=== PATIENT | male | born 1960 | race Caucasian/White ===

== ENCOUNTER 2016-10-15 11:18 | Emergency (ER) | payer BC ==
[~2016-10-15] VITALS: Ht 182.9 cm; Wt 85.8 kg
[~2016-10-15 11:18] MED LIST: AMOXPOW3 PO; FLUO20CA35 PO; LRTUNK PO; MTRUNK PO
[2016-10-15 11:23] VITALS: TEMP 36.9; Ht 182.9 cm; Wt 85.8 kg
[2016-10-15] MEDS ORDERED: ONDANSETRON INJ 2 MG/ML 2 ML VIAL IV STA (12:06)
[2016-10-15] MEDS ORDERED: SODIUM CHLORIDE 0.9% 1000ML 500 ML IV ONE (12:06)
[2016-10-15] MEDS ORDERED: MoRPHine SULFATE 10 MG/ML CARP/VIAL IV PRN (12:15)
[2016-10-15 12:18] LABS: URINE APPEARANCE CLEAR (CLEAR); URINE BILIRUBIN NEG (NEG); URINE NITRITE NEG (NEG); URINE SPECIFIC GRAVITY 1.016 (1.000-1.030); UROBILINOGEN NEG (NEG); ZZUR CULT IF INDIC CLEAN CATCH NO
[2016-10-15 12:20] LABS: MANUAL MICROSCOPIC REQUIRED? NO; REVIEW REQ? NO; URINE COLOR DK YELLOW
[2016-10-15] MEDS ORDERED: MoRPHine SULFATE 2 MG/ML CARP ONE (12:24)
[2016-10-15 12:31] LABS: HEMATOCRIT 44.1 % (42-52); MEAN CORPUSCULAR HEMOGLOBIN 31.4 pg (25-34); MEAN CORPUSCULAR HGB CONC 34.9 g/dl (32-36); MEAN PLATELET VOLUME 10.6 fL (7.4-10.4); PLATELET COUNT 205 K/uL (130-400); WHITE BLOOD COUNT 9.16 K/uL (4.8-10.8)
[2016-10-15 12:48] LABS: BUN/CREATININE RATIO 14.5 (10-20); CREATININE 0.96 mg/dl (0.60-1.40); POTASSIUM 3.9 mmol/L (3.5-5.1)
[2016-10-15] MEDS ORDERED: SODIUM CHLORIDE 0.9% 1000ML 1,000 ML IV STA (12:51)
[2016-10-15] MEDS ORDERED: LORAZEPAM 2 MG/ML 1 ML VIAL IV STA (12:51)
--- NOTE | 2016-10-15 12:51 | EMERGENCY ROOM VISIT NOTE ---
History Report prepared by Yudith: Natalie Ramos Under the Supervision of: Dr. Darin Coleman M.D. First contact with patient: 12:41 Chief Complaint: BACK PAIN Stated Complaint: BACK,LEG, GROIN PAIN,NAUSEA History of Present Illness The patient is a 56 year old male who presents to the Emergency Room with complaints of persistent back pain for the past 2 weeks. He is accompanied by his . He rates his current pain as a 2/10. He reports 2 nights ago he woke up with generalized abdominal pain and bilateral leg and groin pain. He has also been nauseous and vomiting for the past day. He denies any chest pain or difficulty breathing. He reports he does work in [place], and travels every week for work, which may have exacerbated his back pain. The patient states he underwent an appendectomy 5 years ago but admits his abdominal pain feels similar to when he experienced appendicitis. He denies any history of urinary infections or recent urinary symptoms. 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 A total of 10 systems reviewed and were otherwise negative. Past Medical & Surgical Surgical Problems: (1) History of appendectomy Social History Smoking Status: Never Smoker Smokeless Tobacco Use: No Alcohol Use: occasionally Drug Use: none Marital Status: Housing Status: lives with family Occupation Status: employed Current/Historical Medications Scheduled Fluoxetine (Prozac), 20 MG PO DAILY Ondasetron Odt (Zofran Odt), 4-8 MG SL Q6H Tamsulosin Hcl (Flomax), 1 CAP PO DAILY Scheduled PRN Oxycodone Immediate Rel Tab (Roxicodone Ir), 1-3 TAB PO Q4H PRN for Severe Pain Allergies Coded Allergies: No Known Allergies (Unverified , 12/24/10) Physical Exam Vital Signs Date Time Temp Pulse Resp B/P Pulse Ox O2 Delivery O2 Flow Rate FiO2 10/15/16 15:18 77 16 150/95 97 Room Air 10/15/16 14:29 81 15 144/89 96 Room Air 10/15/16 13:12 74 16 158/92 94 Room Air 10/15/16 12:31 61 16 148/94 97 Room Air 10/15/16 11:23 36.9 81 18 146/94 94 Room Air Physical Exam GENERAL: Patient is anxious and uncomfortable appearing and appears to be in moderate distress. HEENT: No acute trauma, normocephalic atraumatic, mucous membranes moist, no nasal congestion, no scleral icterus. NECK: No stridor, no adenopathy, no meningismus, trachea is midline. LUNGS: No dyspnea. Clear to auscultation and equal bilaterally. No wheeze, no rhonchi. HEART: Regular rate and rhythm. No murmurs, rubs, gallops appreciated. ABDOMEN: Soft, nontender, bowel sounds positive, no masses appreciated, no peritonitis. BACK: No midline tenderness, no CVA tenderness EXTREMITIES: Normal motion all extremities, no cyanosis, no edema. NEUROLOGIC: Alert and oriented, no acute motor or sensory deficits, no focal weakness, cranial nerves grossly intact. SKIN: No rash, no jaundice, no diaphoresis. Medical Decision & Procedures ER Provider Diagnostic Interpretation: This CT scan was reviewed and interpreted by the radiologist and reviewed by myself. ABDOMEN AND PELVIS CT WITH IV CONTRAST IMPRESSION: 1. Mild right hydronephrosis secondary to an obstructing 2 mm stone within the distal right ureter as it crosses the iliac vessels. 2. There is also patchy area of decreased enhancement within the right kidney consistent with pyelonephritis. 3. Additional findings as described above. Electronically signed by: Mp Oropeza M.D. 10/15/2016 2:04 PM Laboratory Results 10/15/16 12:20 10/15/16 12:20 Test 10/15/16 12:00 10/15/16 12:20 Urine Color DK YELLOW Urine Appearance CLEAR (CLEAR) Urine pH 7.0 (4.5-7.5) Urine Specific [place] 1.016 (1.000-1.030) Urine Protein NEG (NEG) Urine Glucose (UA) NEG (NEG) Urine Ketones NEG (NEG) Urine Occult Blood 3+ (NEG) Urine Nitrite NEG (NEG) Urine Bilirubin NEG (NEG) Urine Urobilinogen NEG (NEG) Urine Leukocyte Esterase NEG (NEG) Urine WBC (Auto) 1-5 /hpf (0-5) Urine RBC (Auto) >30 /hpf (0-4) Urine Hyaline Casts (Auto) 1-5 /lpf (0-5) Urine Epithelial Cells (Auto) 10-20 /lpf (0-5) Urine Bacteria (Auto) NEG (NEG) Red Blood Count 4.90 M/uL (4.7-6.1) Mean Corpuscular Volume 90.0 fL (80-100) Mean Corpuscular Hemoglobin 31.4 pg (25-34) Mean Corpuscular Hemoglobin Concent 34.9 g/dl (32-36) RDW Standard Deviation 42.2 fL (36.4-46.3) RDW Coefficient of Variation 12.8 % (11.5-14.5) Mean Platelet Volume 10.6 fL (7.4-10.4) Anion Gap 6.0 mmol/L (3-11) Est Creatinine Clear Calc Drug Dose 92.1 ml/min Estimated GFR () 100.6 Estimated GFR (Non- 86.8 BUN/Creatinine Ratio 14.5 (10-20) Calcium Level 9.0 mg/dl (8.5-10.1) Laboratory results as reviewed by me. Medications Administered Medications (Trade) Dose Ordered Sig/Delicia Route Start Time Stop Time Status Last Admin Dose Admin Sodium Chloride (Nss 1000ml) 500 ml @ 999 mls/hr Q31M ONCE IV 10/15/16 12:06 10/15/16 12:36 DC 10/15/16 12:35 999 MLS/HR Ondansetron HCl (Zofran Inj) 4 mg NOW STAT IV 10/15/16 12:06 10/15/16 12:08 DC 10/15/16 12:36 4 MG Morphine Sulfate (MoRPHine SULFATE INJ) 2 mg STK-MED ONCE .ROUTE 10/15/16 12:24 10/15/16 12:26 DC 10/15/16 12:38 2 MG Lorazepam 1 mg 1 mg NOW STAT IV 10/15/16 12:51 10/15/16 12:52 DC 10/15/16 13:09 1 MG Sodium Chloride (Nss 1000ml) 1,000 ml @ 999 mls/hr Q1H1M STAT IV 10/15/16 12:51 10/15/16 13:51 DC 10/15/16 13:12 999 MLS/HR Ketorolac Tromethamine (Toradol Inj) 30 mg NOW STAT IV 10/15/16 14:56 10/15/16 14:58 DC 10/15/16 15:16 30 MG Tamsulosin HCl (Flomax Cap) 0.4 mg NOW ONCE PO 10/15/16 15:00 10/15/16 15:01 DC 10/15/16 15:14 0.4 MG Oxycodone HCl (Roxicodone Immediate Rel 5MG Home Pack) 1 homepack UD ONCE PO 10/15/16 16:15 10/15/16 16:16 DC 10/15/16 16:15 1 HOMEPACK Ondansetron HCl (ZOFRAN ODT 4MG Home Pack) 1 homepack UD ONCE PO 10/15/16 16:15 10/15/16 16:16 DC 10/15/16 16:15 1 HOMEPACK ED Course 1206: Zofran 4 mg IV, NSS 500 ml @ 999 mls/hr IV. 1224: Morphine Sulfate 2 mg IV. 1244: The patient was evaluated in room A9. A complete history and physical exam was performed. 1251: NSS 1000 ml @ 999 mls/hr IV, Lorazepam 1 mg IV. 1456: I discussed the patients case with Dr. Garcia, [facility]. He recommends outpatient follow up. 1456: Toradol 30 mg IV. 1500: Flomax 0.4 mg PO. 1515: I reevaluated the patient. He is feeling well and states he feels comfortable going home. I discussed his results and discharge instructions and he verbalized complete understanding and agreement. Medical Decision Differential: Renal Colic, Pyelonephritis, Hydronephrosis, Appendicitis, Diverticulitis, Retroperitoneal Bleed/Infection, Aortic Pathology, MSK, Neurologic Pathology, amongst other pathologies entertained. 56 yr old male with right flank pain associated with periodic severe pain. UA with blood though no history of stones thus seems reasonable getting CT to rule out other issue. CT with right 2mm ureteral stone. No fevers, normal wbc, no bacteria nor even many wbc in urine thus I do not feel this is infectious. No right cva ttp. Discussed with Uro who agree with trying outpatient treatment. No indication for abx and advised patient of symptoms requiring return. Pain meds, Flomax, zofran and lots of fluids. Restrictions of pain meds reviewed with patient. Stable and in no distress at time of discharge. Given single dose Toradol with instructions avoid Ibuprofen over next few days in case of need for uro procedure. Consults Time Called: 1450 Consulting Physician: [facility] Returned Call: [phone] I discussed the patients case with [facility]. He recommends outpatient follow up. Impression Primary Impression: Right ureteral calculus Scribe Attestation The scribe's documentation has been prepared under my direction and personally reviewed by me in its entirety. I confirm that the note above accurately reflects all work, treatment, procedures, and medical decision making performed by me. Departure Information Dispostion Home / Self-Care Prescriptions Tamsulosin Hcl (FLOMAX) 0.4 Mg Cap 1 CAP PO DAILY, #5 CAP Prov: Darin Coleman M.D. 10/15/16 Ondasetron Odt (ZOFRAN ODT) 4 Mg Tab 4-8 MG SL Q6H for Nausea, #15 TAB Prov: Darin Coleman M.D. 10/15/16 Oxycodone Immediate Rel Tab (ROXICODONE IR) 5 Mg Tab 1-3 TAB PO Q4H Y for Severe Pain, #20 TAB Prov: Darin Coleman M.D. 10/15/16 Referrals Stefanie Ortiz, (PCP) Juan Garcia M.D. Patient Instructions Kidney Stones - [facility], My [facility] Additional Instructions You have received a narcotic pain medication prescription. These medications may cause drowsiness and should not be used with other sedative medications. Do not drive, drink alcohol, perform dangerous activities, nor make important decisions after taking these medications. snf use or inappropriate use may lead to addiction. Return immediately if severe pain, passing out, vomiting, fevers, or other concerns. If no improvement follow up with Urologist.
[2016-10-15] MEDS ORDERED: OPTIRAY 320 IV PRN (13:00)
--- NOTE | 2016-10-15 14:06 | DIAGNOSTIC IMAGING REPORT ---
ABDOMEN AND PELVIS CT WITH IV CONTRAST CT DOSE: 610.27 mGy.cm HISTORY: Right flank pain, blood in urine TECHNIQUE: Multiaxial CT images of the abdomen and pelvis were performed following the use of intravenous contrast. COMPARISON STUDY: Abdomen and pelvis CT 12/24/2010. FINDINGS: The lung bases are clear. 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 The bladder is unremarkable. Left peripelvic cysts are again noted. Increase in size in the 2.2 cm cyst within the lower pole the left kidney. A 1.3 cm cyst within the lower pole the right kidney has also increased in size. There is a patchy area of decreased enhancement within the posterior interpolar region of the right kidney. There is minimal perinephric fat stranding. These findings are consistent with pyelonephritis. There is also mild right hydronephrosis. There is a punctate calcification which appears to be located within the distal right ureter as it crosses the iliac vessels on image 364. This measures 2 mm. Hepatic steatosis. The gallbladder, pancreas, spleen, and adrenal glands are unremarkable. No retroperitoneal lymphadenopathy. Colonic diverticulosis. No bowel wall thickening or obstruction. The appendix appears surgically absent. IMPRESSION: 1. Mild right hydronephrosis secondary to an obstructing 2 mm stone within the distal right ureter as it crosses the iliac vessels. 2. There is also patchy area of decreased enhancement within the right kidney consistent with pyelonephritis. 3. Additional findings as described above. Electronically signed by: Mp Oropeza M.D. 10/15/2016 2:04 PM Dictated Date/Time: 10/15/2016 1:56 PM
[2016-10-15] MEDS ORDERED: KETOROLAC TROMETHAMINE 30 MG/ML VIAL IV STA (14:56)
[2016-10-15] MEDS ORDERED: TAMSULOSIN HCL 0.4 MG CAP PO ONE (15:00)
[2016-10-15 15:18] VITALS: BP 150/95; PULSE 77; O2SAT 97
[2016-10-15] MEDS ORDERED: ONDA4TAB10 SL (15:31)
[2016-10-15] MEDS ORDERED: OXYC1TAB3 PO (15:31)
[2016-10-15] MEDS ORDERED: TAMS0.4C38 PO (15:31)
[2016-10-15] MEDS ORDERED: OXYCODONE IR HOME PACK PO ONE (16:15)
[2016-10-15] MEDS ORDERED: ONDANSETRON HOME PACK 4MG OD TAB PO ONE (16:15)
[2016-10-30] MEDS ORDERED: TAMS0.4C38 PO (16:17)
[2016-11-03] MEDS ORDERED: HYDR-5688 PO (08:03)
[2016-11-03] MEDS ORDERED: PHEN-876 PO (08:03)
[2016-11-03] MEDS ORDERED: CIPR-255 PO (08:03)
== END 2016-10-15 15:46 | disposition home or self-care (01) ==
LOC: C.EDB 11:21 → C.EDA 15:46
DX: N20.1 Calculus of ureter (principal)

== ENCOUNTER 2016-10-24 10:42 | Emergency (ER) | payer BC ==
[~2016-10-24] VITALS: Ht 180.3 cm; Wt 86.0 kg
[~2016-10-24 10:42] MED LIST changes: -AMOXPOW3 PO; -LRTUNK PO; -MTRUNK PO; +ONDA4TAB10 SL; +OXYC1TAB3 PO; +TAMS0.4C38 PO
[2016-10-24 10:47] VITALS: TEMP 36.7
[2016-10-24] MEDS ORDERED: SODIUM CHLORIDE 0.9% 1000ML 1,000 ML IV STA ×2 (10:58)
[2016-10-24] MEDS ORDERED: KETOROLAC TROMETHAMINE 30 MG/ML VIAL IV STA (10:58)
[2016-10-24] MEDS ORDERED: ONDANSETRON INJ 2 MG/ML 2 ML VIAL IV STA (10:58)
[2016-10-24] MEDS ORDERED: MoRPHine SULFATE 4 MG/ML 1 ML CARP\\VIAL IV PRN (11:00)
--- NOTE | 2016-10-24 11:20 | EMERGENCY ROOM VISIT NOTE ---
History Report prepared by Yudith: Ele Santamaria Under the Supervision of: Dr. Abhishek Carbajal M.D. First contact with patient: 10:54 Chief Complaint: KIDNEY STONE Stated Complaint: KIDNEY STONES History of Present Illness The patient is a 56 year old male who presents to the Emergency Room with complaints of a persistent kidney stone that was found 11 days ago. He currently rates his discomfort as a 6.5-7/10 in severity, but states that this morning he was in more pain. Per records, the patient had a 2 mm stone in the right distal ureter on the 15 of October. The patient states that he was prescribed oxycodone for his pain, Zofran for his nausea, and Tamsulosin. He states that he has only been taking the Tamsulosin daily. The patient states that he has become constipated due to the Oxycodone stating that he took Doctylax around 1600 yesterday which alleviated his constipation. He describes his discomfort as an achy pain and notes it into his groin and testicles. The patient states that this is his first kidney stone and states that he had an appointment with urology today. He states that he was told that his kidney stone should pass within two days, but denies seeing the stone pass yet. The patient states that his pain worsened. The patient states that he has been sleeping okay, noting that he is getting up often in the middle of the night due to increased urination. He denies any current fever, nausea, or vomiting. Source of History: patient Onset: 11 days ago Position: other (kidney stone) Symptom Intensity: 6.5-7/10 Quality: ache Timing: other (persistent) Associated Symptoms: No fevers, No nausea, No vomiting Review of Systems See HPI for pertinent positives & negatives. A total of 10 systems reviewed and were otherwise negative. Past Medical & Surgical Surgical Problems: (1) History of appendectomy Family History Cancer FH: heart disease Social History Smoking Status: Never Smoker Alcohol Use: occasionally Drug Use: none Marital Status: Housing Status: lives with family Occupation Status: employed Current/Historical Medications Scheduled Fluoxetine (Prozac), 20 MG PO DAILY Ondasetron Odt (Zofran Odt), 4-8 MG SL Q6H Tamsulosin Hcl (Flomax), 1 CAP PO DAILY Scheduled PRN Oxycodone Immediate Rel Tab (Roxicodone Ir), 1-3 TAB PO Q4H PRN for Severe Pain Allergies Coded Allergies: No Known Allergies (Unverified , 12/24/10) Physical Exam Vital Signs Date Time Temp Pulse Resp B/P Pulse Ox O2 Delivery O2 Flow Rate FiO2 10/24/16 14:43 60 16 141/87 97 Room Air 10/24/16 14:04 96 Room Air 10/24/16 12:41 63 18 143/87 96 Room Air 10/24/16 10:47 36.7 68 18 156/96 98 Physical Exam GENERAL: Patient is in moderate distress, having a difficult time sitting still. HEENT: No acute trauma, normocephalic atraumatic, mucous membranes moist, no nasal congestion, no scleral icterus. NECK: No stridor, no adenopathy, no meningismus, trachea is midline. LUNGS: Clear to auscultation bilaterally, no wheeze, no rhonchi, breath sounds equal. HEART: Without murmurs gallops or rubs, regular rate and rhythm. ABDOMEN: Soft, nontender, bowel sounds positive, no hernias, no peritonitis. BACK: No flank discomfort with percussion. EXTREMITIES: No cyanosis or edema, full range of motion of all the joints without pain or difficulty, no signs for acute trauma. NEUROLOGIC: Oriented x 3, no acute motor or sensory deficits, no focal weakness. SKIN: No rash, no jaundice, no diaphoresis. Medical Decision & Procedures ER Provider Diagnostic Interpretation: X-ray results as stated below per interpretation by me and the radiologist: KUB CLINICAL HISTORY: Right flank pain. FINDINGS: 2 AP supine abdominal radiographs are correlated with abdominal CT dated 10/15/16. There is a nonobstructed abdominal bowel gas pattern. No evidence of intraperitoneal free air is seen on these supine views. There are no abnormal abdominal calcifications. Right-sided pelvic phleboliths are unchanged. The bony structures appear intact. IMPRESSION: 1. There is no radiographic evidence of nephrolithiasis. 2. No bowel obstruction is seen. Electronically signed by: Abhishek Arora M.D. 10/24/2016 11:33 AM Dictated Date/Time: 10/24/2016 11:31 AM The status of this report is Signed. Draft = Not yet reviewed or approved by Radiologist. Signed = Reviewed and approved by Radiologist. Laboratory Results 10/24/16 11:05 Red Blood Count 4.68, Mean Corpuscular Volume 91.9, Mean Corpuscular Hemoglobin 32.3, Mean Corpuscular Hemoglobin Concent 35.1, Mean Platelet Volume 10.8, Neutrophils (%) (Auto) 73.0, Lymphocytes (%) (Auto) 17.4, Monocytes (%) (Auto) 9.1, Eosinophils (%) (Auto) 0.2, Basophils (%) (Auto) 0.2, Neutrophils # (Auto) 5.85, Lymphocytes # (Auto) 1.40, Monocytes # (Auto) 0.73, Eosinophils # (Auto) 0.02, Basophils # (Auto) 0.02 10/24/16 11:05 Test 10/24/16 11:05 10/24/16 11:09 White Blood Count 8.03 K/uL (4.8-10.8) Red Blood Count 4.68 M/uL (4.7-6.1) Hemoglobin 15.1 g/dL (14.0-18.0) Hematocrit 43.0 % (42-52) Mean Corpuscular Volume 91.9 fL (80-100) Mean Corpuscular Hemoglobin 32.3 pg (25-34) Mean Corpuscular Hemoglobin Concent 35.1 g/dl (32-36) Platelet Count 213 K/uL (130-400) Mean Platelet Volume 10.8 fL (7.4-10.4) Neutrophils (%) (Auto) 73.0 % Lymphocytes (%) (Auto) 17.4 % Monocytes (%) (Auto) 9.1 % Eosinophils (%) (Auto) 0.2 % Basophils (%) (Auto) 0.2 % Neutrophils # (Auto) 5.85 K/uL (1.4-6.5) Lymphocytes # (Auto) 1.40 K/uL (1.2-3.4) Monocytes # (Auto) 0.73 K/uL (0.11-0.59) Eosinophils # (Auto) 0.02 K/uL (0-0.5) Basophils # (Auto) 0.02 K/uL (0-0.2) RDW Standard Deviation 43.0 fL (36.4-46.3) RDW Coefficient of Variation 12.8 % (11.5-14.5) Immature Granulocyte % (Auto) 0.1 % Immature Granulocyte # (Auto) 0.01 K/uL (0.00-0.02) Anion Gap 11.0 mmol/L (3-11) Est Creatinine Clear Calc Drug Dose 85.7 ml/min Estimated GFR () 95.7 Estimated GFR (Non- 82.6 BUN/Creatinine Ratio 11.1 (10-20) Calcium Level 9.2 mg/dl (8.5-10.1) Urine Color YELLOW Urine Appearance CLEAR (CLEAR) Urine pH 6.5 (4.5-7.5) Urine Specific [place] 1.000 (1.000-1.030) Urine Protein NEG (NEG) Urine Glucose (UA) NEG (NEG) Urine Ketones NEG (NEG) Urine Occult Blood 3+ (NEG) Urine Nitrite NEG (NEG) Urine Bilirubin NEG (NEG) Urine Urobilinogen NEG (NEG) Urine Leukocyte Esterase NEG (NEG) Urine WBC (Auto) 0 /hpf (0-5) Urine RBC (Auto) 0-4 /hpf (0-4) Urine Hyaline Casts (Auto) 0 /lpf (0-5) Urine Epithelial Cells (Auto) 0-5 /lpf (0-5) Urine Bacteria (Auto) NEG (NEG) Laboratory results reviewed by me. Medications Administered Medications (Trade) Dose Ordered Sig/Delicia Route Start Time Stop Time Status Last Admin Dose Admin Ondansetron HCl 4 mg 4 mg NOW STAT IV 10/24/16 10:58 10/24/16 11:01 DC 10/24/16 11:11 4 MG Sodium Chloride 1,000 ml @ 999 mls/hr Q1H1M STAT IV 10/24/16 10:58 10/24/16 11:58 DC 10/24/16 11:10 999 MLS/HR Sodium Chloride (Nss 1000ml) 1,000 ml @ 200 mls/hr Q5H STAT IV 10/24/16 10:58 10/24/16 15:57 10/24/16 12:40 200 MLS/HR Morphine Sulfate (MoRPHine SULFATE INJ) 4 mg Q15M PRN IV 10/24/16 11:00 11/07/16 10:59 10/24/16 11:11 4 MG Ketorolac Tromethamine (Toradol Inj) 30 mg NOW STAT IV 10/24/16 10:58 10/24/16 11:02 DC 10/24/16 11:11 30 MG ED Course 1057: The patient was evaluated in room C6. A complete history and physical exam was performed. 1058: Ordered Toradol Inj 30 mg IV, Sodium Chloride 1000 ml @ 200 mls/hr IV, Sodium Chloride 1000 ml @ 999 mls/hr IV, Zofran Inj 4 mg iV. 1100: Ordered Morphine Sulfate 4 mg IV. 1217: I reevaluated the patient and he is about the same. I discussed all the exam findings with him and I discussed the treatment plan. He verbalized complete understanding and agreement. He will be evaluated for further treatment. 1253: I discussed the patient's case with MAURA Ricks. He is going to evaluate the patient for further treatment. Medical Decision The patient is a 56 year old male who presents to the ED with complaints of a kidney stone. Differential diagnoses considered include failed outpatient treatment, renal colic, renal failure, electrolyte imbalance, UTI. There is no leukocytosis or concerning anemia. No significant electrolyte abnormality, kidney failure. Urinalysis does not show evidence for infection. Urine did demonstrate some hematuria. KUB shows no obvious ureteral stone. The patient received IV saline, IV Toradol, IV morphine and IV Zofran, he is more comfortable. The patient has been unable to pass the ureteral stone since he has been home. He has been dealing with this issue now for 10 days, he is failing outpatient management. He does not think he can be discharged home in this condition. I did speak with case management and the on-call hospitalist. Consults Time Called: 1220 Consulting Physician: MAURA Ricks Returned Call: [phone] I discussed the patient's case with MAURA Ricks. He is going to evaluate the patient for further treatment. Impression Primary Impression: Renal colic Additional Impression: Failure of outpatient treatment Scribe Attestation The scribe's documentation has been prepared under my direction and personally reviewed by me in its entirety. I confirm that the note above accurately reflects all work, treatment, procedures, and medical decision making performed by me. Departure Information Dispostion Being Evaluated By Hospitalist Referrals Stefanie Ortiz DO (PCP) Problem Qualifiers
[2016-10-24 11:26] LABS: BASO % 0.2 %; BASO ABS # 0.02 K/uL (0-0.2); COMPLETE YES; EOS % 0.2 %; IG% 0.1 %; LYMPH % 17.4 %; MEAN CELL VOLUME 91.9 fL (80-100); MEAN CORPUSCULAR HEMOGLOBIN 32.3 pg (25-34); MEAN CORPUSCULAR HGB CONC 35.1 g/dl (32-36); MEAN PLATELET VOLUME 10.8 fL (7.4-10.4); MONO % 9.1 %; PLATELET COUNT 213 K/uL (130-400); RED BLOOD COUNT 4.68 M/uL (4.7-6.1); WHITE BLOOD COUNT 8.03 K/uL (4.8-10.8)
[2016-10-24 11:28] LABS: URINE APPEARANCE CLEAR (CLEAR); URINE BILIRUBIN NEG (NEG); URINE COLOR YELLOW; URINE EPITHELIAL CELL AUTO 0-5 /lpf (0-5); URINE NITRITE NEG (NEG); URINE PH 6.5 (4.5-7.5); UROBILINOGEN NEG (NEG); ZZUR CULT IF INDIC CLEAN CATCH NO
--- NOTE | 2016-10-24 11:34 | DIAGNOSTIC IMAGING REPORT ---
KUB CLINICAL HISTORY: Right flank pain. FINDINGS: 2 AP supine abdominal radiographs are correlated with abdominal CT dated 10/15/16. There is a nonobstructed abdominal bowel gas pattern. No evidence of intraperitoneal free air is seen on these supine views. There are no abnormal abdominal calcifications. Right-sided pelvic phleboliths are unchanged. The bony structures appear intact. IMPRESSION: 1. There is no radiographic evidence of nephrolithiasis. 2. No bowel obstruction is seen. Electronically signed by: Abhishek Arora M.D. 10/24/2016 11:33 AM Dictated Date/Time: 10/24/2016 11:31 AM
[2016-10-24 11:36] LABS: MANUAL MICROSCOPIC REQUIRED? NO; REVIEW REQ? NO
[2016-10-24] MEDS ORDERED: NURSING VERBAL MED ORDER ONE (11:45)
[2016-10-24 11:52] LABS: BUN/CREATININE RATIO 11.1 (10-20); CALCIUM 9.2 mg/dl (8.5-10.1); POTASSIUM 3.4 mmol/L (3.5-5.1)
--- NOTE | 2016-10-24 13:59 | History and Physical ---
History & Physical Date & Time of Service: Oct 24, 2016 at 13:48 Chief Complaint: Kidney Stones Primary Care Physician: Stefanie Ortiz DO History of Present Illness Source: patient 56 y/o M who denies a significant medical history presented 10/15 with R flank pain and was diagnosed with a 2mm obstructing distal ureteral stone and associated hydronephrosis. The pt was D/Cd home as the stone was likely going to pass spontaneously. He has had progressive pain however which he states has not improved. He denies fevers or significant dysuria. He describes difficulty sleeping and pacing continuously while awake due to the severity of the pain. On repeat CT it does appear that the stone has migrated to the ureterovesical junction. Past Medical/Surgical History Renal calculus 10/15 Family History Cancer FH: heart disease Social History Pt works in [facility] in the [employer] industry - He travels to [place] frequently - he does not smoke and drinks in moderation Smoking Status: Never Smoker Drug Use: none Marital Status: Occupational Status: employed Immunizations History of Influenza Vaccine: No History of Tetanus Vaccine?: No History of Pneumococcal: No History of Hepatitis B Vaccine: Yes Multi-Drug Resistant Organisms History of MDRO: No Allergies Coded Allergies: No Known Allergies (Unverified , 12/24/10) Home Medications Scheduled Fluoxetine (Prozac), 20 MG PO DAILY Ondasetron Odt (Zofran Odt), 4-8 MG SL Q6H Tamsulosin Hcl (Flomax), 1 CAP PO DAILY Scheduled PRN Ketorolac Tromethamine (Toradol), 10 MG PO Q6 PRN for Pain Oxycodone Immediate Rel Tab (Roxicodone Ir), 1-3 TAB PO Q4H PRN for Severe Pain Review of Systems Constitutional: No chills, No fever, No sweats Eyes: No worsening of vision ENT: No hearing loss, No nasal symptoms, No unusual epistaxis Respiratory: No cough, No sputum, No wheezing Cardiovascular: No PND, No chest pain, No orthopnea Abdomen: + pain (R flank - RLQ) Musculoskeletal: No joint pain, No muscle pain Genitourinary - Male: + hematuria (No gross heamturia described), + problem reported (R flank pain - severe), No dysuria Neurologic: No memory loss, No paralysis, No weakness Psychiatric: No anhedonism, No depression symptoms Endocrine: No fatigue Hematologic / Lymphatic: No abnormal bleeding/bruising Integumentary: No rash Allergic / Immunologic: No environmental allergies Physical Exam Vital Signs Date Time Temp Pulse Resp B/P Pulse Ox O2 Delivery O2 Flow Rate FiO2 10/24/16 12:41 63 18 143/87 96 Room Air 10/24/16 10:47 36.7 68 18 156/96 98 General Appearance: WD/WN, no apparent distress Head: normocephalic, atraumatic Eyes: normal inspection, PERRL, EOMI ENT: normal ENT inspection, hearing grossly normal, TMs normal, pharynx normal Neck: supple, no adenopathy, thyroid normal, no JVD Respiratory/Chest: chest non-tender, lungs clear, normal breath sounds, no respiratory distress, no accessory muscle use Cardiovascular: regular rate, rhythm, no edema, no gallop, no JVD, no murmur, normal peripheral pulses Abdomen/GI: normal bowel sounds, non tender, soft Genitourinary - Male: + pertinent finding (R flank pain to palpation) Back: normal inspection, no CVA tenderness, no muscle spasm, normal range of motion Extremities/Musculoskelatal: normal inspection, no calf tenderness, normal capillary refill, no pedal edema, normal range of motion 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, no motor/sensory deficits, alert, normal mood/affect, normal reflexes, oriented x 3 Skin: normal color, warm/dry, no rash Diagnostics Laboratory Results Results Past 24 Hours Test 10/24/16 11:05 10/24/16 11:09 Range/Units White Blood Count 8.03 4.8-10.8 K/uL Red Blood Count 4.68 4.7-6.1 M/uL Hemoglobin 15.1 14.0-18.0 g/dL Hematocrit 43.0 42-52 % Mean Corpuscular Volume 91.9 80-100 fL Mean Corpuscular Hemoglobin 32.3 25-34 pg Mean Corpuscular Hemoglobin Concent 35.1 32-36 g/dl Platelet Count 213 130-400 K/uL Mean Platelet Volume 10.8 7.4-10.4 fL Neutrophils (%) (Auto) 73.0 % Lymphocytes (%) (Auto) 17.4 % Monocytes (%) (Auto) 9.1 % Eosinophils (%) (Auto) 0.2 % Basophils (%) (Auto) 0.2 % Neutrophils # (Auto) 5.85 1.4-6.5 K/uL Lymphocytes # (Auto) 1.40 1.2-3.4 K/uL Monocytes # (Auto) 0.73 0.11-0.59 K/uL Eosinophils # (Auto) 0.02 0-0.5 K/uL Basophils # (Auto) 0.02 0-0.2 K/uL RDW Standard Deviation 43.0 36.4-46.3 fL RDW Coefficient of Variation 12.8 11.5-14.5 % Immature Granulocyte % (Auto) 0.1 % Immature Granulocyte # (Auto) 0.01 0.00-0.02 K/uL Sodium Level 136 136-145 mmol/L Potassium Level 3.4 3.5-5.1 mmol/L Chloride Level 99 98-107 mmol/L Carbon Dioxide Level 26 21-32 mmol/L Anion Gap 11.0 3-11 mmol/L Blood Urea Nitrogen 11 7-18 mg/dl Creatinine 1.00 0.60-1.40 mg/dl Est Creatinine Clear Calc Drug Dose 85.7 ml/min Estimated GFR () 95.7 Estimated GFR (Non- 82.6 BUN/Creatinine Ratio 11.1 10-20 Random Glucose 94 70-99 mg/dl Calcium Level 9.2 8.5-10.1 mg/dl Urine Color YELLOW Urine Appearance CLEAR CLEAR Urine pH 6.5 4.5-7.5 Urine Specific [place] 1.000 1.000-1.030 Urine Protein NEG NEG Urine Glucose (UA) NEG NEG Urine Ketones NEG NEG Urine Occult Blood 3+ NEG Urine Nitrite NEG NEG Urine Bilirubin NEG NEG Urine Urobilinogen NEG NEG Urine Leukocyte Esterase NEG NEG Urine WBC (Auto) 0 0-5 /hpf Urine RBC (Auto) 0-4 0-4 /hpf Urine Hyaline Casts (Auto) 0 0-5 /lpf Urine Epithelial Cells (Auto) 0-5 0-5 /lpf Urine Bacteria (Auto) NEG NEG Diagnostic Radiology KUB 1. There is no radiographic evidence of nephrolithiasis. 2. No bowel obstruction is seen. CT: Distal migration of the previously described 2 mm right ureteral calculus, which is now positioned within the intravesical portion of the right ureterovesical junction. Impression Assessment and Plan 56 y/o M who denies a significant medical history presented 10/15 with R flank pain and was diagnosed with a 2mm obstructing distal ureteral stone and associated hydronephrosis. The pt was D/Cd home as the stone was likely going to pass spontaneously. He has had progressive pain however which he states has not improved. He denies fevers or significant dysuria. He describes difficulty sleeping and pacing continuously while awake due to the severity of the pain. I had an extensive discussion with the pt, his and the ER attending and also spoke to the Urologist manager talent acquisition. Considering that the stone has migrated and is likely to pass spontaneously, the pt will be D/Cd with appropriate analgesics. We have made an appt for him with the urologist for the following day. He is instructed to return to the hospital if he develops a fever for nausea and vomiting which would preclude him form taking his medications. Total time for this admit including review of labs, meds, records, imaging - discussion with ER attending and pt/ - 38 min Please consider the above a consult Resuscitation Status FULL RESUSCITATION
[2016-10-24 14:04] VITALS: O2SAT 96; Ht 180.3 cm; Wt 86.0 kg
--- NOTE | 2016-10-24 14:52 | DIAGNOSTIC IMAGING REPORT ---
CT SCAN OF THE ABDOMEN AND PELVIS WITHOUT CONTRAST CLINICAL HISTORY: Right flank pain COMPARISON STUDY: 10/15/2016 TECHNIQUE: CT scan of the abdomen and pelvis was performed from the lung bases to the proximal femurs. Images are reviewed in the axial, sagittal, and coronal planes. IV contrast was not administered for this examination. CT DOSE: 923.33 mGy.cm FINDINGS: Lower chest: The heart is normal in size and configuration, without pericardial effusion. The lung bases and pleural spaces are clear. Liver: There is suspected hepatic steatosis. Gallbladder: Unremarkable. Spleen: Normal in size and attenuation. Pancreas: Unremarkable. Adrenal glands: Unremarkable. Kidneys: No renal calculi are visualized. There is a 22 mm lower pole left renal cyst. There is a 12 mm lower pole right renal cyst. There is been distal migration of the previous described 2 mm right ureteral calculus to the level of the right ureterovesical junction. No left ureteral calculi are visualized. Bowel: There are no transition zones indicate bowel obstruction. There is no acute diverticulitis. The appendix is surgically absent. Peritoneum: There is no intraperitoneal free air or abdominal ascites. Vasculature: The abdominal aorta is normal in course and caliber. Adenopathy: None. Pelvic viscera: The prostate is mildly enlarged with calcifications. The prostate measures 5.5 cm Skeletal structures: There is right-sided L5 spondylolysis. IMPRESSION: Distal migration of the previously described 2 mm right ureteral calculus, which is now positioned within the intravesical portion of the right ureterovesical junction. Electronically signed by: Navarro Ayala M.D. 10/24/2016 2:51 PM Dictated Date/Time: 10/24/2016 2:45 PM
[2016-10-24] MEDS ORDERED: KETO10TA PO (15:32)
--- NOTE | 2016-10-24 15:43 | EMERGENCY ROOM VISIT NOTE ---
ED Visit Note First contact with patient: 10:54 The patient was seen by the on-call hospitalist. Urology was consulted. The patient has decided to be discharged home, he has an appointment tomorrow with urology. He will be on Toradol orally as this has helped him with pain control. The patient will continue the Uroxatral as prescribed. He can use Zofran for nausea. If he is worsening, if his pain is not controlled, he will report back to the ER.
[2016-10-24 16:08] VITALS: BP 140/84; PULSE 60; O2SAT 99
[2016-10-30] MEDS ORDERED: TAMS0.4C38 PO (16:17)
[2016-11-03] MEDS ORDERED: CIPR-255 PO (08:03)
[2016-11-03] MEDS ORDERED: HYDR-5688 PO (08:03)
[2016-11-03] MEDS ORDERED: PHEN-876 PO (08:03)
== END 2016-10-24 16:10 | disposition home or self-care (01) ==
LOC: C.EDB 10:44 → C.EDC 16:10
DX: N23 Unspecified renal colic (principal); Z91.19 Patient's noncompliance with other medical treatment and regimen

== ENCOUNTER → 2016-10-30 | Outpatient (CLI) | payer BC ==
[~2016-10-30] MED LIST changes: +CIPR-255 PO; +HYDR-5688 PO; +KETO10TA PO; +PHEN-876 PO
--- NOTE | 2016-10-30 15:19 | DIAGNOSTIC IMAGING REPORT ---
CHEST 2 VIEWS ROUTINE CLINICAL HISTORY: N20.0 Kidney [id number] pain. Dyspnea. COMPARISON STUDY: No previous studies for comparison. FINDINGS: The bones soft tissues and hemidiaphragms are normal. The cardiomediastinal silhouette is normal. The lungs are clear. The pulmonary vasculature is normal. IMPRESSION: Negative chest. Electronically signed by: Jun Cuadra M.D. 10/30/2016 3:17 PM Dictated Date/Time: 10/30/2016 3:13 PM
== END | disposition home or self-care (01) ==
LOC: C.CPL 14:44
PROVIDERS: ATTEND Urology
DX: N20.0 Calculus of kidney (principal); R00.1 Bradycardia, unspecified

== ENCOUNTER → 2016-11-03 | Day surgery (SDC) | payer BC ==
[2016-10-30 16:17] VITALS: BMI 26.0
[~2016-11-03] VITALS: Ht 180.3 cm; Wt 87.3 kg
[~2016-11-03] MED LIST changes: +ATROPINE SULFATE 0.1 MG/ML 5ML SYR IV PRN; +CIPROFLOXACIN / D5W 400 MG IV SCH; +DEXAMETHASONE SOD INJ 4 MG/ML VIAL ONE; +EpHEDrine SULFATE INJ 50 MG/ML AMP IV PRN; +FENTANYL CITRATE INJ 50 MCG/1 ML 2 ML VIAL IV PRN; +FENTANYL CITRATE INJ 50 MCG/1 ML 2 ML VIAL ONE; +HYDROmorphone INJ 1 MG/ML SYR IV PRN; -KETO10TA PO; +KETOROLAC TROMETHAMINE 30 MG/ML VIAL ONE; +LACTATED RINGER'S 1000ML 1,000 ML IV SCH; +LIDOCAINE HCL 2% 2 ML VIAL (20MG/ML) ONE; +MIDAZOLAM HCL 1 MG/ML 2ML VIAL ONE; +MoRPHine SULFATE 2 MG/ML CARP ONE; -ONDA4TAB10 SL; +ONDANSETRON INJ 2 MG/ML 2 ML VIAL IV PRN; +ONDANSETRON INJ 2 MG/ML 2 ML VIAL ONE; -OXYC1TAB3 PO; +OXYCODONE/ACETAMINOPHEN 5-325 TAB PO PRN; +PROPOFOL IV EMULSION 10 MG/ML 20 ML VIAL IV ONE; +SODIUM CHLORIDE 0.9% 1000ML 1,000 ML IV SCH
[2016-11-03 05:41] VITALS: BP 153/78; PULSE 60; TEMP 36.4; O2SAT 97; Ht 180.3 cm; Wt 87.3 kg
--- NOTE | 2016-11-03 07:03 | History & Physical Bridge Note ---
H&P Re-Evaluation Bridge Note: I have examined the patient, reviewed the History & Physical and in the interval since the performance of the History & Physical I have noted the following changes of clinical significance: No changes noted
--- NOTE | 2016-11-03 08:02 | [facility] Post Operative Brief Note ---
Immediate Operative Summary Operative Date Nov 03, 2016. Pre-Operative Diagnosis nephrolithiasis Post-Operative Diagnosis nephrolithiasis Procedure(s) Performed cystoscopy, ureteroscopy, laser lithotripsy, right stent placement, stone extraction Surgeon Dr. Juan Garcia Membership Counselor Surgeon(s) None Estimated Blood Loss 0ML Findings Small stone, impacted in the distal ureter. Fragmented and extracted. Specimens A. RIGHT KIDNEY STONE Drains [id number] Anesthesia Gen Complication(s) None Disposition Recovery Room / PACU (stable)
--- NOTE | 2016-11-03 08:06 | Discharge Instructions ---
Discharge Instructions Date of Service Nov 03, 2016. Admission Reason for Admission: Stones Discharge Discharge Diagnosis / Problem: stone Discharge Goals Goal(s): Decrease discomfort, Improve function, Increase independence, Improve disease control Activity Recommendations Activity Limitations: resume your previous activity Lifting Limitations: none Exercise/Sports Limitations: none May Resume Sexual Activity: when tolerated Shower/Bathe: no limitations Driving or Machine Use: no limitations . Instructions / Follow-Up Instructions / Follow-Up Please come to Dr. Garcia' s office on November 13 at 11:30AM to have your stent removed. Discharge Diet Recommended Diet: Regular Diet Procedures Procedures Performed: cystoscopy, ureteroscopy, laser lithotripsy, right stent placement, stone extraction Pending Studies Studies pending at discharge: no Medical Emergencies . Who to Call and When: Medical Emergencies: If at any time you feel your situation is an emergency, please call 911 immediately. . Non-Emergent Contact Non-Emergency issues call your: Urologist Call Non-Emergent contact if: you have a fever, temperature is above 101.5, your pain is not controlled, your pain is worsening . . "Provider Documentation" section prepared by Cristofer Bangura. VTE Core Measure Inpt VTE Proph given/why not?: Treatment not indicated [place] Drug Monitoring Program Search Results: patient reviewed within database, no issues identified (prior rx - all appropriate)
--- NOTE | 2016-11-03 08:39 | Anesthesiology Progress Note ---
Anesthesia Post Op Note Date & Time Nov 03, 2016 at 08:39 Vital Signs Pain Intensity: 0 Vital Signs Past 12 Hours Date Time Temp Pulse Resp B/P Pulse Ox O2 Delivery O2 Flow Rate FiO2 11/03/16 08:25 76 16 132/92 95 Room Air 11/03/16 08:15 82 14 131/92 100 Mask 10 11/03/16 08:05 85 12 135/97 100 Mask 10 11/03/16 07:59 36.3 94 18 124/87 98 Mask 10 11/03/16 05:41 36.4 60 20 153/78 97 Room Air Notes Mental Status: alert / awake / arousable, participated in evaluation Pt Amnestic to Procedure: Yes Nausea / Vomiting: adequately controlled Pain: adequately controlled Airway Patency, RR, SpO2: stable & adequate BP & HR: stable & adequate Hydration State: stable & adequate Anesthetic Complications: no major complications apparent
[2016-11-03 08:45] VITALS: BP 142/90; PULSE 75; TEMP 36.4; O2SAT 98
[2016-11-03 09:22] VITALS: BP 122/89; PULSE 66; TEMP 36.4; O2SAT 97
[2016-11-03 09:45] VITALS: BP 140/90; PULSE 70; TEMP 36.5; O2SAT 98
--- NOTE | 2016-11-03 09:57 | OPERATIVE REPORT ---
DATE OF OPERATION: 11/03/2016 PREOPERATIVE DIAGNOSIS: Right ureteral calculus. POSTOPERATIVE DIAGNOSIS: Right ureteral calculus. PROCEDURE PERFORMED: Cystoscopy, right ureteroscopy, laser lithotripsy, stone basket extraction and stent placement. SURGEON: Dr. Juan Garcia. DESCRIPTION OF THE PROCEDURE: Justo Carlin was identified in the preoperative holding area. Appropriate informed consents were reviewed and completed and the patient was transported to the operating suite. Upon arrival, he received appropriate preoperative antibiotics in the form of ciprofloxacin. Adequate general anesthesia was achieved and the patient was placed in dorsal lithotomy position where he was sterilely prepped and draped in standard fashion. I began the case by passing a 22-[place] Islander cystoscope and 30 degree lens. Inspection revealed no evidence of stricture disease in the urethra. Prostate was relatively small in size, the bladder was unremarkable with no evidence of mucosal disease. No stone was seen protruding from the right ureteral orifice, although there was slight mounding in the area the presumed intramural ureter. I cannulated this with a 6-[place] Islander open ended catheter and a sensor wire. There was efflux of some bloody urine at that time. The stone did not protrude from the orifice. I then reentered alongside the wire utilizing a semirigid ureteroscope and guided this carefully into the distal ureter. Inspection revealed a yellow appearing calculus with numerous sharp edges somewhat impacted into the distal ureter, approx 5mm above the UVJ. I was able to use a 400 micron laser fiber to fragment the stone and free it from its site of impaction. Small pieces irrigated free; however, the largest fragment continued to get slightly hung up in this area and I collected it with a basket and extracted it without difficulty. I then scoped up above the vessels and saw no other stones or other obstructing elements. I placed a 6 [place] Island[place] 26 cm double-J ureteral stent seeing a good curl in the kidney as well as the bladder and I concluded the case. The patient was subsequently extubated and taken to the PACU in stable condition. Estimated blood loss for this case was 0 mL. Specimen was stone. I attest to the content of the Intraoperative Record and any orders documented therein. Any exceptions are noted below. [facility]
== END | disposition home or self-care (01) ==
LOC: C.ACU 05:11
PROVIDERS: ATTEND Urology
DX: N20.0 Calculus of kidney (principal); F41.8 Other specified anxiety disorders; E78.5 Hyperlipidemia, unspecified; Z82.49 Family history of ischemic heart disease and other diseases of the circulatory system; Z80.0 Family history of malignant neoplasm of digestive organs; Z81.8 Family history of other mental and behavioral disorders; Z81.4 Family history of other substance abuse and dependence; Z79.899 Other long term (current) drug therapy; Z85.828 Personal history of other malignant neoplasm of skin

== ENCOUNTER → 2016-11-13 | Outpatient (CLI) | payer BC ==
[~2016-11-13] MED LIST changes: -ATROPINE SULFATE 0.1 MG/ML 5ML SYR IV PRN; -CIPROFLOXACIN / D5W 400 MG IV SCH; -DEXAMETHASONE SOD INJ 4 MG/ML VIAL ONE; -EpHEDrine SULFATE INJ 50 MG/ML AMP IV PRN; -FENTANYL CITRATE INJ 50 MCG/1 ML 2 ML VIAL IV PRN; -FENTANYL CITRATE INJ 50 MCG/1 ML 2 ML VIAL ONE; -HYDROmorphone INJ 1 MG/ML SYR IV PRN; -KETOROLAC TROMETHAMINE 30 MG/ML VIAL ONE; -LACTATED RINGER'S 1000ML 1,000 ML IV SCH; -LIDOCAINE HCL 2% 2 ML VIAL (20MG/ML) ONE; -MIDAZOLAM HCL 1 MG/ML 2ML VIAL ONE; -MoRPHine SULFATE 2 MG/ML CARP ONE; -ONDANSETRON INJ 2 MG/ML 2 ML VIAL IV PRN; -ONDANSETRON INJ 2 MG/ML 2 ML VIAL ONE; -OXYCODONE/ACETAMINOPHEN 5-325 TAB PO PRN; -PROPOFOL IV EMULSION 10 MG/ML 20 ML VIAL IV ONE; -SODIUM CHLORIDE 0.9% 1000ML 1,000 ML IV SCH
--- NOTE | 2016-11-13 09:06 | DIAGNOSTIC IMAGING REPORT ---
KUB CLINICAL HISTORY: Renal calculus COMPARISON STUDY: 10/24/2016 FINDINGS: There is no pathologic bowel dilatation. No definite renal calculi are visualized. There is been interval placement of a double-pigtail right-sided nephroureteral stent. The proximal pigtail is not fully formed. Pelvic basin calcifications while nonspecific likely represent phleboliths. IMPRESSION: 1. No evidence of pathologic bowel dilatation 2. No urinary tract calculi identified 3. Interval placement of a double-pigtail right-sided nephroureteral stent Electronically signed by: Navarro Ayala M.D. 11/13/2016 9:04 AM Dictated Date/Time: 11/13/2016 9:01 AM
== END | disposition home or self-care (01) ==
LOC: C.RAD 08:44
PROVIDERS: ATTEND Urology
DX: N20.0 Calculus of kidney (principal); Z96.0 Presence of urogenital implants

== ENCOUNTER 2025-06-30 06:02 | Observation (INO) ==
--- NOTE | 2025-06-24 10:09 | Anesthesiology Consultation ---
Date of Service June 24, 2025 Assessment & Plan Chart Review Chart Review: Acceptable Risk for Surgery, Patient NOT seen in Pre Admission Testing and entry level account manager initiated Consults Requested none History Surgery Operation Date: 06/30/25 07:30 Proposed Procedures p Robotic Assisted Laparoscopic Radical Retropubic Prostatectomy, Possible Open, Possible Pelvic Lymph Node Dissection - Juan Garcia MD Height/Weight Height: 6 ft Weight: 87.997 kg Allergies Allergy/AdvReac Type Severity Reaction Status Date / Time No Known Allergies Allergy Verified 06/18/25 11:51 Medications Home Medications Medication Instructions Recorded Confirmed Last Taken lorazepam 0.5 mg tablet 0.5 mg PO DAILY PRN Anxiety #14 02/11/25 06/18/25 Un known tabs B.coag 1 billion 1 ea PO QAM 06/18/25 06/18/25 Unknown ltrr-mbbfkvhekfhl-ybmi gum 4 gram oral powder packet (Benefiber Advanced) alfuzosin 10 mg tablet,extended 10 mg PO HS 06/18/25 06/18/25 Unknown release 24 hr (Uroxatral) citalopram 20 mg tablet 20 mg PO HS 06/18/25 06/18/25 Unknown Past Medical History Medical History Prostate cancer (03/2025) reason for upcoming sx Fatty liver Hx of basal cell carcinoma s/p MOHS Hx of hyperlipidemia no meds Low back pain Osteoarthritis History of kidney stones History of anxiety History of depression Actinic keratosis Achilles tendon tear hx History of colon polyps LUMMI (hard of hearing) HAS HEARING AIDS Past Family History Family History Father Myocardial infarction Lung cancer, Onset Age: 86 No treatment Mother Hypertension Sister , late 60's Stroke Brother Colon cancer, Onset Age: 69 Surgery Brother Asthma Denies family history of Ovarian cancer Prostate cancer Breast cancer Past Surgical History Surgical History H/O prostate biopsy 04/07/25 - Dr. Garcia History of repair of right rotator cuff right H/O cystoscopy History of colonoscopy S/P appendectomy History of ankle surgery left S/P knee surgery right S/P wisdom tooth extraction Social History Smoking Status: Never smoker Do You Dip or Chew Tobacco: No Hx Alcohol Use: Yes Alcohol type: wine alcohol intake frequency: 0-2 drinks per day Hx Substance Use: No substance use type: does not use Testing Electrocardiogram Date: 03/16/25 Findings: + SB @ (46) pvcs
[2025-06-30] MEDS: LR 15ML/HR IV SCH (06:40)
[2025-06-30] MEDS: HEPARIN SOD 5,000 UNIT/0.5 ML VIAL SC SCH (06:42)
[2025-06-30] MEDS ORDERED: PROPOFOL IV EMULSION 10 MG/ML 20 ML VIAL IV ONE ×3 (07:02→09:28)
[2025-06-30] MEDS ORDERED: ROCURONIUM BROMIDE 10 MG/ML 5 ML VIAL IV ONE ×2 (07:02→08:17)
[2025-06-30] MEDS ORDERED: DEXAMETHASONE SOD INJ 4 MG/ML VIAL ONE (07:02)
[2025-06-30] MEDS ORDERED: LIDOCAINE 2% 2 ML VIAL/AMP(20MG/ML) INFIL ONE (07:02)
[2025-06-30] MEDS ORDERED: ONDANSETRON INJ 2 MG/ML 2 ML VIAL ONE (07:02)
[2025-06-30] MEDS ORDERED: MIDAZOLAM HCL 1 MG/ML 2ML VIAL ONE (07:04)
[2025-06-30] MEDS ORDERED: ACETAMINOPHEN 1000 MG/100 ML IV IV ONE (07:19)
--- NOTE | 2025-06-30 07:26 | History & Physical Report ---
Date of Service June 30, 2025 Assessment & Plan (1) Prostate cancer: Plan Prostate cancer here today for robotic prostatectomy risks, benefits, and expectations reviewed History of Present Illness Primary Care Provider: Melina Diaz MD Prostate cancer - recently diagnosed plan for robotic prostatectomy today Allergies Allergy/AdvReac Type Severity Reaction Status Date / Time No Known Allergies Allergy Verified 06/30/25 06:02 Home Medications Medication Instructions Recorded Confirmed Type lorazepam 0.5 mg tablet 0.5 mg PO DAILY PRN Anxiety #14 02/11/25 06/30/25 Rx tabs B.coag 1 billion 1 ea PO QAM 06/18/25 06/30/25 History vynf-pwdptzytydbi-vjey gum 4 gram oral powder packet (Benefiber Advanced) alfuzosin 10 mg tablet,extended 10 mg PO HS 06/18/25 06/30/25 History release 24 hr (Uroxatral) citalopram 20 mg tablet 20 mg PO HS 06/18/25 06/30/25 History Past Med/Surg History Problem List Prostate cancer (Chronic 04/07/25) High prostate specific antigen (PSA) Kidney stone Osteoarthritis of right shoulder Right knee DJD Insomnia (Chronic) Hyperlipidemia (Chronic) NO CURRENT MEDS History of basal cell carcinoma (BCC) of skin (Chronic) s/p MOHS Fatty liver (Chronic) Depression with anxiety (Chronic) Medical History Prostate cancer (03/2025) reason for upcoming sx Fatty liver Hx of basal cell carcinoma s/p MOHS Hx of hyperlipidemia no meds Low back pain Osteoarthritis History of kidney stones History of anxiety History of depression Actinic keratosis Achilles tendon tear hx History of colon polyps RESIGHINI (hard of hearing) HAS HEARING AIDS Surgical History H/O prostate biopsy 04/07/25 - Dr. Garcia History of repair of right rotator cuff right H/O cystoscopy History of colonoscopy S/P appendectomy History of ankle surgery left S/P knee surgery right S/P wisdom tooth extraction Family History Father Myocardial infarction Lung cancer, Onset Age: 86 No treatment Mother Hypertension Sister , late 60's Stroke Brother Colon cancer, Onset Age: 69 Surgery Brother Asthma Denies family history of Ovarian cancer Prostate cancer Breast cancer Social History (Updated 05/06/25 @ 08:55 by Barbara Garcia RN) Smoking Status: Never smoker Second Hand Exposure: No; Do You Dip or Chew Tobacco: No; Tobacco Cessation Education Requested by Patient: No Hx Alcohol Use: Yes Alcohol type: wine Alcohol Intake Frequency: 4 or More x per/Week Alcohol Intake Frequency Comment: 8 oz glass of wine daily Hx Substance Use: No Preferred Language: Thai Communication Ability: Effective Visual Impairment: No Limitations Hearing Ability: Use of Hearing Aid Dust Collector Ore Crushing Required: No Beliefs That Will Affect Care: None marital status: Current Living Situation: Spouse current occupational status: employed 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[employer], [employer] How many Children do You have: 3 Other Information That Helps Us Care for You: No Feels Safe at Home: Yes Safety Concerns: Feels Safe At This Time Childhood Exposure to Second-Hand Smoke: Yes Diet: regular caffeine: Yes during the past year weight has: remained stable Dental Care, Regularly: Yes Physical Activity Frequency: Daily Seatbelt Use: always Sunscreen Use: Yes Assistive Devices: Glasses and Hearing Aid - Bilateral Physical Exam Constitutional: well developed and well nourished Neck: neck nontender Respiratory: normal respiratory effort; no respiratory distress and does not use accessory muscles Cardiovascular: Rate/Rhythm: regular rate Vessels: radial pulses present Extremities: no edema Gastrointestinal (Abdomen): Inspection/Auscultation: abdomen normal to inspection Percussion/Palpation: abdomen soft; abdomen nontender and no guarding Musculoskeletal: Head/Neck/Chest: normocephalic and head atraumatic Extremities: extremities normal to inspection Skin: no rashes and no lesions Trauma: no evidence of skin trauma Neurologic: awake; not obtunded Speech / Cognition: normal speech Motor/Sensory: no tremor Psychiatric: Orientation: alert and oriented x 3 Genitourinary: no CVA tenderness Lymphatic: no lymphadenopathy Results & Data Vital Signs (Past 12 Hours) Vital Signs Temp Pulse Resp BP Pulse Ox O2 Del Method 06/30/25 06:19 36.7 C 58 L 20 157/95 H 97 Room Air
[2025-06-30] MEDS: ceFAZolin 3000MG 3,000 MG/72.5 ML BAG IV SCH (07:50)
[2025-06-30] MEDS ORDERED: LABETALOL HCL IV 5 MG/ML 20ML IV ONE (08:42)
[2025-06-30] MEDS ORDERED: PHENYLEPHRINE 100MCG/ML 5ML SYR ONE (09:50)
[2025-06-30] MEDS ORDERED: ePHEDrine sulfate 50 MG/5 ML SYR ONE (09:51)
[2025-06-30] MEDS ORDERED: HYDROmorphone INJ 2 MG/ML SYR/VIAL ONE (10:17)
[2025-06-30] MEDS ORDERED: SUGAMMADEX SODIUM 200 MG/2 ML VIAL IV ONE (10:22)
[2025-06-30] MEDS: BUPIVACAINE LIPOSOME 1.3% 266 MG/20 ML VIAL ONE (10:32)
[2025-06-30] MEDS: BUPIVACAINE 0.5 % 5 MG/1 ML MPF 30ML VIAL ONE (10:32)
--- NOTE | 2025-06-30 11:10 | Operative Report ---
PG Post Operative Report Pre & Post Diagnosis Operation Date: 06/30/25 07:30 Pre-Op Diagnosis: Malignant Neoplasm of Prostate Post-Op Diagnosis: Malignant Neoplasm of Prostate I identified the patient and participated in the time-out.: Yes Procedure Operation Date: 06/30/25 07:30 Actual Procedures p Robotic Assisted Laparoscopic Radical Retropubic Prostatectomy, Lysis of adhesions, Bilateral Pelvic Lymph Node Dissection(Not Applicable) - Juan Garcia MD Surgeon Juan Garcia MD Head Screen Worker Arash Rojo, PAC Estimated Blood Loss 20 Findings Consistent with Post-Op Diagnosis Specimens 1. Periprostatic fat 2. Prostate and seminal vesicles 3. Left pelvic lymph nodes 4. Right pelvic lymph nodes Description of Procedure The patient was identified in the preoperative holding area, appropriate informed consents were reviewed and completed, and he was transported to the operating suite. Subcutaneous heparin was administered in the pre-operative holding area. Upon arrival in the operating suite, he received appropriate antibiotics and general anesthesia and was positioned supine and prepped in sterile fashion. A Berg catheter was inserted in the sterile field. A Veress needle was passed per umbilicus with uniform insufflation of the abdomen to 15mmHg. He was placed in 26 degrees of Trendelenburg. A periumbilical incision was then made to accommodate a robotic port and entry was made using a visual obturator. Inspection of the abdomen was carried out, and there was no evidence of traumat ic entry or injury secondary to the Veress needle. After confirming a clear anterior abdominal wall, ports were subsequently placed in standard robotic prostatectomy fashion without incident. Of note, although adhesions did not impact our ability to place the ports I did lyse some adhesions just around the umbilicus. Additionally, there was some notable adhesions that were somewhat walling off the deep pelvis and pouch of Alejandro and particularly adherent on the left lateral aspect of the pelvis. I was able to sharply incise these and we performed a lysis of adhesions for approximately 15 minutes before being able to clear the surgical space appropriately to proceed with the remainder of the surgery. I then made an incision in the pouch of Alejandro, overlying the seminal vesicles. Both SVs as well as the ampullae of the vasa were entirely dissected, with the vasa transected 3cm from the prostate. Dissection posterior to the prostate was completed, splitting Denonvilliers' fascia. The medial umbilical ligaments were then controlled with bipolar electrocautery just inferior to the umbilicus. Following cauterization, they were divided utilizing monopolar cautery. A peritoneal incision was carried from this location to the medial aspect of the internal inguinal rings bilaterally with care to avoid opening through the ring. This incision was concluded when the vas deferens was reached. Dissection of the bladder and prostate off of the posterior aspect of the pubic arch was completed allowing full visualization of the prostate. The fat overlying the prostate was removed en bloc and passed off the table as a specimen labeled "periprostatic fat". The endopelvic fascia was cleared during this portion of the procedure, and subsequently opened - first on the right and then the left. The incision through the endopelvic fascia began near the prostate-bladder junction and was carried to the apex with extreme care to preserve all lateral levator musculature as well as the periurethral musculature and sphincter complex. I additionally preserved the puboprostatic ligaments. I then controlled the DVC with a 2-0 V-lock suture in overlapping/figure of 8 fashion. The lymph node dissection was then conducted. External iliac vessels were identified on the pelvic side wall. The packet of fat and lymphatic tissue that resides just under the iliac vein was elevated and off of the vein with a split and roll technique. The packet was dissected laterally to the circumflex vein and distally to the obturator nerve which was preserved. The proximal aspect of the packet was carried towards the bifurcation of the iliac vessels. A combination of monopolar and bipolar cautery were used to assist with control. After completing the dissection on both sides, the packets were collected and passed off of the table as specimens labeled "pelvic lymph nodes". My attention then returned to the prostate, with identification of the bladder neck aided by gentle traction on the Berg catheter and lateral to medial pressure at the presumed level of the bladder neck with the robotic instruments. An anterior cystotomy was made, the Berg balloon deflated and the catheter guided through the incision to allow anterior retraction. I attempted to preserve maximal bladder neck musculature as I circumferentially dissected around the bladder neck. After incision through the posterior aspect of the mucosa, the dissection was carried through detrusor muscle until the bilateral ampullae of the vasa were identified. The previously dissected vasa and SVs were brought through the incision and used to elevated the prostate anteriorly. An incision in the lateral prostatic fascia was then made bilaterally to facilitate control of the vascular pedicles and preservation of the nerve bundles. Vasculature running along the posterior/lateral aspect of the prostate was preserved as well as the tissue containing the nerves. The pedicles were then controlled with a series of Weck clips. The apical attachments of the prostate were remaining at that stage. The DVC was divided after control with bipolar cautery over the prostate. Continuous inspection from anterior and lateral views allowed me to closely follow the apical contour of the prostate and maximally preserve urethral length and tissue. The prostate was entirely freed at that point, and collected in an EndoCatch bag before being moved out of the field of vision. Hemostasis was obtained with directed suture ligation of any bleeding vessels along the neurovascular bundles utilizing 3-0 v-Lock suture. Anastomosis of the bladder and urethra was completed utilizing a double armed V-Lock stitch. A new Berg catheter was inserted and the anastomosis tested with irrigation. There was no evidence of leak. A naman style stitch was placed bilaterally to functionally marsupialize the area of the lymph node dissection. The robot was undocked, the specimen extracted through expansion of the lucila- umbilical camera port. The fascia was closed with a series of 0-PDS figure of 8 stitches. All skin incisions were closed with 4-0 monocryl. All incisions and muscle layers were anesthesized with a combination of marcaine and Exparel. The case was concluded and the patient taken to the PACU in stable condition. Arash Rojo, CLAUDIA assisted from incision to closure. I attest to the content of the Intraoperative Record and any orders documented therein. Any exceptions are noted below.
[2025-06-30 11:31] LABS: Hematocrit (blood only) 41.1 % (42.0-52.0); Hemoglobin 13.9 g/dL (14.0-18.0); Mean Corpuscular Hemoglobin 31.5 pg (25.0-34.0); Mean Corpuscular Volume 93.2 fL (80.0-100.0); Platelet Count 197 K/uL (130-400); RDW Standard Deviation 44.8 fL (36.4-46.3); Red Blood Count 4.41 M/uL (4.70-6.10); White Blood Count 11.54 K/ul (4.8-10.8)
[2025-06-30 11:39] LABS: Anion Gap 5.0 (3-11); Blood Urea Nitrogen 16.0 mg/dl (6-23); Calcium 8.4 mg/dl (8.6-10.3); Carbon Dioxide 25.0 mmol/L (21-32); Chloride 106.0 mmol/L (98-107); Creatinine Clr Calc Pharmacy 59.1 ml/min; Glucose 163.0 mg/dl (70-99(Fasting)); Potassium 4.1 mmol/L (3.5-5.1); Sodium 136.0 mmol/L (136-145)
[2025-06-30 11:55] LABS: Immature Granulocytes # (auto) 0.05 K/uL (0.01-0.20); Immature Granulocytes % (auto) 0.4 %
--- NOTE | 2025-06-30 11:59 | Anesthesiology Progress Note ---
Date of Service June 30, 2025 Anesthesia Post Procedure Vital Signs Vital Signs: Temp Pulse Resp BP Pulse Ox O2 Del Method O2 Flow Rate 06/30/25 11:50 85 17 172/55 H 94 Nasal Cannula 2 06/30/25 11:40 86 15 123/72 95 Nasal Cannula 2 06/30/25 11:30 83 12 114/69 97 Oxymask 6 06/30/25 11:20 76 14 121/63 97 Oxymask 6 06/30/25 11:10 77 13 92/70 L 99 Oxymask 15 06/30/25 11:02 36.2 C L 78 15 103/65 90 Oxymask 15 06/30/25 06:19 36.7 C 58 L 20 157/95 H 97 Room Air Transfer of Care Handoff Completed per policy Notes Mental Status: alert / awake / arousable and participated in evaluation Patient Amnestic to Procedure: Yes Nausea / Vomiting: adequately controlled Pain: adequately controlled Airway Patency, RR, SpO2: stable & adequate BP & HR: stable & adequate Hydration State: stable & adequate Anesthetic Complications: no major complications apparent and Pt Satisfied with anesthetic care
[2025-06-30] MEDS ORDERED: ONDANSETRON INJ 2 MG/ML 2 ML VIAL IV PRN (12:03)
[2025-06-30] MEDS ORDERED: LORazepam 0.5 MG TAB PO PRN (12:03)
[2025-06-30] MEDS: HYDROmorphone INJ 0.5 MG/0.5 ML SYR IV PRN (12:26)
[2025-06-30] MEDS: SODIUM CHLORIDE 0.9% 1,000 ML IV SCH (14:25)
[2025-06-30] MEDS: HEPARIN SOD 5,000 UNIT/0.5 ML VIAL SQ SCH (20:10)
[2025-06-30] MEDS: DOCUSATE SODIUM 100 MG CAP PO SCH (20:11)
[2025-06-30] MEDS: CITALOPRAM 20 MG TAB PO SCH (20:23)
[2025-07-01 06:29] LABS: Hematocrit (blood only) 38.5 % (42.0-52.0); Hemoglobin 12.8 g/dL (14.0-18.0); Immature Granulocytes # (auto) 0.05 K/uL (0.01-0.20); Immature Granulocytes % (auto) 0.5 %; Mean Corpuscular Hemoglobin 31.1 pg (25.0-34.0); Mean Corpuscular Volume 93.7 fL (80.0-100.0); Platelet Count 189 K/uL (130-400); RDW Standard Deviation 46.2 fL (36.4-46.3); Red Blood Count 4.11 M/uL (4.70-6.10); White Blood Count 11.07 K/ul (4.8-10.8)
[2025-07-01 07:18] LABS: Anion Gap 6.0 (3-11); Blood Urea Nitrogen 16.0 mg/dl (6-23); Calcium 8.6 mg/dl (8.6-10.3); Carbon Dioxide 26.0 mmol/L (21-32); Chloride 105.0 mmol/L (98-107); Creatinine Clr Calc Pharmacy 80.6 ml/min; Glucose 105.0 mg/dl (70-99(Fasting)); Potassium 4.0 mmol/L (3.5-5.1); Sodium 137.0 mmol/L (136-145)
[2025-07-01 07:42] VITALS: RESP 16
[2025-07-01] MEDS: ACETAMINOPHEN 500 MG TAB PO PRN (08:26)
--- NOTE | 2025-07-01 08:28 | Urology Progress Note ---
Date of Service July 01, 2025 Assessment & Plan (1) Prostate cancer: Plan Postop day #1 status post robotic prostatectomy Progressing appropriately Labs stable Urine clear Tolerating a diet Had a small bowel movement overnight Plan for diet advancement discharge home later today Admission and Anticipated Discharge Date Admission Date: June 30, 2025 Subjective Subjectively feels very good Is been active and up and out of bed He did have a little bit of lightheadedness this morning with activity but this has now resolved Minimal hematuria after increased activity Otherwise feels great Physical Exam Physical Exam: Abdomen soft, incisions all appropriate Urine clear Results & Data Vital Signs (Past 12 Hours) Vital Signs Temp Pulse Resp BP Pulse Ox O2 Del Method 07/01/25 07:41 36.9 C 62 16 118/73 94 Room Air 07/01/25 03:00 37.1 C 76 18 116/68 92 Room Air 06/30/25 23:00 37.4 C 83 18 119/68 93 Room Air PG Care Time/CCT Total # of Minutes Spent Total Time Spent with Patient: Total time spent is greater than 50% in coordination of care (as documented) at patient's floor/unit and/or counseling patient: Coding Level of Care Code None Diagnoses Prostate cancer C61
[2025-07-01] MEDS: HYDROmorphone INJ 0.5 MG/0.5 ML SYR IV PRN (10:15)
[2025-07-01 11:32] VITALS: BP 146/74; PULSE 56; TEMP 98.2; O2SAT 96
--- NOTE | 2025-07-02 11:39 | Discharge Summary ---
Date of Service July 02, 2025 Admission HPI Per Admitting Provider Prostate cancer - recently diagnosed plan for robotic prostatectomy today Admission Exam Per Admitting Provider Constitutional: well developed and well nourished Neck: neck nontender Respiratory: normal respiratory effort; no respiratory distress and does not use accessory muscles Cardiovascular: Rate/Rhythm: regular rate Vessels: radial pulses present Extremities: no edema Gastrointestinal (Abdomen): Inspection/Auscultation: abdomen normal to inspection Percussion/Palpation: abdomen soft; abdomen nontender and no guarding Musculoskeletal: Head/Neck/Chest: normocephalic and head atraumatic Extremities: extremities normal to inspection Skin: no rashes and no lesions Trauma: no evidence of skin trauma Neurologic: awake; not obtunded Speech / Cognition: normal speech Motor/Sensory: no tremor Psychiatric: Orientation: alert and oriented x 3 Genitourinary: no CVA tenderness Lymphatic: no lymphadenopathy Principal Diagnosis Prostate cancer Discharge Exam Constitutional well developed and well nourished; no acute distress Respiratory normal respiratory effort; no respiratory distress and no labored breathing Gastrointestinal (Abdomen) Incisions appropriate, Dermabond intact Musculoskeletal Head/Neck/Chest: normocephalic Skin no rashes, warm and dry Neurologic moves all extremities and awake Psychiatric A+Ox3, euthymic affect Genitourinary Berg intact and draining clear yellow urine Discharge Data Allergies Allergy/AdvReac Type Severity Reaction Status Date / Time No Known Allergies Allergy Verified 06/30/25 06:02 Procedures Performed Operation Date: 06/30/25 07:30 Actual Procedures p Robotic Assisted Laparoscopic Radical Retropubic Prostatectomy, Lysis of adhesions, Bilateral Pelvic Lymph Node Dissection(Not Applicable) - Juan Garcia MD Hospital Course (1) Prostate cancer: Plan 64-year-old male admitted status post robotic prostatectomy with Dr. Garcia. Patient tolerated procedure well. No acute issues postoperatively. He remained afebrile and hemodynamically stable. Labs appropriate. Tolerated diet. Ambulated without issue. Reported minimal pain. Berg with good output and urine was clear yellow. He was discharged home on postop day #1 with a Berg catheter in place. He was in stable condition at time of discharge. Discharge instructions were reviewed and all questions were answered. Total Time Total Time Spent Total Time Spent (In Minutes): 15 Discharge Plan Discharge Items Patient Disposition: Home - Self-Care Reason For Visit: Malignant Neoplasm of Prostate Discharge Diagnosis: Malignant Neoplasm of Prostate Condition on Discharge: Good Activity: Per Instructions section Bathing Comment: OK to shower. No tub baths or soaks. Sexual Activity: Wait until after follow-up appointment Exercise/Sports: Wait until after follow-up appointment Driving/Machine Use: Do not drive if taking prescription pain medication. Non-emergency contact: Specialist and Urologist Call non-emergency contact if: you have any medication questions, your symptoms worsen, your pain is not controlled, you have a fever, your wound has increased redness, your wound has increased drainage and your wound pain has increased Follow-up/Referrals: Juan Garcia MD [Physician] - 07/24/25 9:15 am Melina Diaz MD [Primary Care Provider] - Urology,Nurse [FAKE FOR SCHEDULES] - 07/06/25 8:30 am Diet: Regular Addtl Attending Provider Instructions: Please take all medications as prescribed and keep all follow-ups as scheduled. Please call our office at [phone] with any questions, concerns or need to reschedule appointments for any reason. We are happy to assist you We have sent an antibiotic to your pharmacy of choice. Please begin antibiotic as prescribed the day BEFORE your scheduled voiding trial at [facility]. Please continue antibiotic every 12 hours through the day AFTER your voiding trial. Activity: We recommend having someone with you for the first few days after surgery to help care for you. For the first 2 weeks after surgery, we would like you to get up and walk around your house. However, we recommend limit physical activity that would increase your heart rate. This will allow your body to rest and heal. Take naps if you feel tired. Don't lift anything heavier than 10 pounds, mow the law or ride a bicycle until your follow-up appointment. Please avoid long car rides. Home Care: Unless directed otherwise, drink 6 to 8 glasses of water a day (enough to keep your urine light colored). This will also help keep a healthy flow of urine. We recommend using a stool softener for the first two weeks to avoid constipation. Berg Catheter or Suprapubic Catheter care: Keep the catheter well secured with either a leg back or leg strap with large bag. Empty your bag when it's about half full. You may notice some blood in the bag. This is normal after surgery and while the catheter is in place. Use mild soap (such as Dove or Dial) and water to wash the catheter and the head of your penis daily, or more frequently if needed. Return to your normal diet, we encourage good protein intake to promote healing. You may shower as normal. Please avoid tub baths or soaking until catheter removed and incisions well healed. Wearing sweat pants while you have the catheter is recommended, they will be more comfortable. Follow-up Your follow up appointments for having your catheter removed, and follow up with your physician should already be scheduled. If you have any questions regarding this, please contact our office. Your final pathology report will be discussed at your physician follow-up appointment. Call [facility] at [phone] right away if you have any of the following: Chest pain or trouble breathing (call [phone] or go to the hospital) Fever of 101F or higher, uncontrolled vomiting Heavy bleeding, clots, or bright red blood from the catheter Catheter that falls out or stops draining Foul-smelling discharge from your catheter Redness, swelling, warmth, or increased pain at your incision site Drainage, pus, or bleeding from your incision Pending Studies at Discharge: Yes (pathology) Stand-Alone Forms: My [facility] [employer], Smoking Cessation Medications and DC Order Prescriptions: New ciprofloxacin HCl 500 mg tablet 500 mg PO BID 3 Days Qty: 6 0RF Rx Instructions: Start 1 day prior to catheter removal oxycodone 5 mg tablet 5 mg PO Q8H PRN (Reason: pain) Qty: 7 0RF Continued lorazepam 0.5 mg tablet 0.5 mg PO DAILY PRN (Reason: Anxiety) Qty: 14 0RF Patient Comments: RARELY TAKEN-ONLY WITH OVERSEAS TRAVEL Benefiber Advanced 1 billion cell- 4 gram Powder In Packet 1 ea PO QAM citalopram 20 mg tablet 20 mg PO HS Patient Comments: QPM Discontinued alfuzosin [Uroxatral] 10 mg tablet extended release 24 hr 10 mg PO HS Patient Comments: QPM Rx Instructions: administer after the same meal each day Discharge Orders: Discharge Order (Routine); Ordered 07/01/25 Ordered By: Jazmin Hearn/Other Patient Handouts: DVT Post Op Prevention Admission Data Admit Date/Time: 06/30/25 10:53 Attending Provider: Juan Garcia Admit Provider: Juan Garcia Primary Care Provider: Melina Diaz Other Interventions: Discharge Summary Assessment (RN) Last Done: 07/01/25 12:08 Coding Level of Care Code 66696 IN/OBS DISCH 30 MIN/LESS Diagnoses Prostate cancer C61
== END 2025-07-01 15:30 | disposition home or self-care (01) | DRG 708 ==
LOC: ASU 06:02 → PACUINP 10:53 → INTOOBSV 10:53 → 3E 14:11